=== PATIENT | male | born 1975 | race Caucasian/White ===

== ENCOUNTER 2016-03-25 10:11 | Emergency (ER) | payer OTHER ==
[~2016-03-25] VITALS: Ht 188 cm; Wt 108.9 kg
[~2016-03-25 10:11] MED LIST: ?ANTIBIOTIC; AMOX250S6 PO; ESCI10TA PO; HYDR-2890 PO; HYDR15SO6 PO; Lidocaine Hcl PO; NF-ESOM40C PO; ONDA-42 SL; PANT40TA3 PO; TRAM-21 PO
--- OUTSIDE RECORDS SUMMARY | 2016-03-25 10:18 | XMS REPORT | Continuity of Care Document ---
Author Author [facility] Organization [facility] Address Unknown Phone Unavailable Care Team Providers Care Pot Feeder Name Role Phone ROLANDO SAVAGE MD PCP Insurance Providers Payer Name Policy Number Subscriber Name Relationship [facility] [id number] Mildred Baker 20 Self / Same As Patient Advance Directives Directive Response Recorded Date/Time Advance Directives No 09/07/14 1:55pm Health Care Power of Collection Manager No 09/07/14 1:55pm Organ Donor Yes 09/07/14 1:55pm Resuscitation Status Full Code 09/07/14 1:55pm Problems Medical Problems Problem Onset Date Status Right sided abdominal pain Unknown Active Medications Medication Dose Route Sig Days/Qty Instructions Order Date Discontinued Date Status Esomeprazole Magnesium 1 Cap PO DAILY 30 Qty 12/06/12 Active [?Antibiotic] ?MG BID 12/06/12 05/31/14 Discontinued Hydrocodone Bit/Acetaminophen 1 Each PO EVERY 4HRS PRN 14 Qty 12/06/12 05/31/14 Discontinued [Lidocaine Hcl] 1 Tsp PO Q2H PRN PAIN 06/04/14 09/07/14 Discontinued Amoxicillin Trihydrate 2 Tsp PO TWICE A DAY 7 Days 06/04/14 09/07/14 Discontinued Hydrocodone Bit/Acetaminophen 10-15 Ml PO EVERY 4HRS PRN PAIN 1 Qty 09/07/14 Discontinued Tramadol Hcl 50 Mg PO EVERY 6 HOURS PRN PAIN 20 Qty 09/05/14 Active Ondansetron Hcl 4 Mg SL EVERY 4HRS PRN 10 Qty 09/05/14 09/07/14 Discontinued Social History Social History Problem Response Recorded Date/Time Alcohol Use Occasionally Uses 09/05/2014 10:15am Recreational Drug Use No 09/05/2014 10:15am Recent Foreign Travel No 09/07/2014 1:54pm Sexually Transmitted Disease No 09/05/2014 10:15am HIV/AIDS No 09/05/2014 10:15am Smoking Status Current Everyday Smoker 09/07/2014 1:52pm Do you dip or chew tobacco? No 09/07/2014 1:52pm Query Response Start Date Stop Date Smoking Status Current Everyday Smoker 06/04/2011 Hospital Discharge Instructions No hospital discharge instructions. Plan of Care No plan of care. Functional Status No functional status results. Allergies, Adverse Reactions, Alerts Allergen Type Severity Reaction Status Last Updated No Known Drug Allergies Active 12/06/12 Immunizations Name Given Type Date of Pneumonia Vaccine 06/03/09 Historical Date of Influenza Vaccine 12/08/13 Historical Tetanus Booster (TDap) More than 5yrs Historical Vital Signs Acute Vital Signs Vital Response Date/Time Temperature (Fahrenheit) 97.9 degrees F (97.6 - 99.5) Temperature (Calculated Celsius) 36.71855 degrees C (36.4 - 37.5) Temperature Source Tympanic Pulse Rate (adult) 48 bpm (60 - 90) Respiratory Rate 16 bpm (12 - 24) O2 Sat by Pulse Oximetry 99 % (88 - 100) Blood Pressure 136/66 mm Hg Pain Pain Intensity 0 Height (Feet) 6 feet Height (Inches) 3.00 inches Height (Calculated Centimeters) 190.246829 cm Weight (Pounds) 240 pounds Weight (Calculated Grams) 633892.170 gm Weight (Calculated Kilograms) 108.390813 kilograms Calculated BMI 29.99 Results Laboratory Results Test Name Result Units Flags Reference Collection Date/Time Result Date/ Time Comments White Blood Count 10.1 10^3/uL 4.3-11.0 09/05/2014 10:20am 09/05/2014 10:26am Red Blood Count 6.13 10^6/uL H 4.35-5.85 09/05/2014 10:20am 09/05/2014 10 :26am Hemoglobin 15.8 G/DL 13.3-17.7 09/05/2014 10:09/05/2014 10:26am Hematocrit 48 % 40-54 09/05/2014 10:09/05/2014 10:26am Mean Corpuscular Volume 78 FL L 80-99 09/05/2014 10:09/05/2014 10: 26am Mean Corpuscular Hemoglobin 26 PG 25-34 09/05/2014 10:09/05/2014 10:26am Mean Corpuscular Hemoglobin Concent 33 G/DL 32-36 09/05/2014 10: 10:26am Red Cell Distribution Width 18.7 % H 10.0-14.5 09/05/2014 10:2014 10:26am Platelet Count 405 10^3/uL H 130-400 09/05/2014 10:09/05/2014 10: 26am Mean Platelet Volume 9.8 FL 7.4-10.4 09/05/2014 10:09/05/2014 10: 26am Neutrophils (%) (Auto) 75 % 42-75 09/05/2014 10:09/05/2014 10: 26am Lymphocytes (%) (Auto) 17 % 12-44 09/05/2014 10:09/05/2014 10: 26am Monocytes (%) (Auto) 7 % 0-12 09/05/2014 10:09/05/2014 10:26am Eosinophils (%) (Auto) 1 % 0-10 09/05/2014 10:09/05/2014 10:26am Basophils (%) (Auto) 1 % 0-10 09/05/2014 10:09/05/2014 10:26am Neutrophils # (Auto) 7.6 X 10^3 1.8-7.8 09/05/2014 10:09/05/2014 10:26am Lymphocytes # (Auto) 1.7 X 10^3 1.0-4.0 09/05/2014 10:09/05/2014 10:26am Monocytes # (Auto) 0.7 X 10^3 0.0-1.0 09/05/2014 10:09/05/2014 10: 26am Eosinophils # (Auto) 0.1 10^3/uL 0.0-0.3 09/05/2014 10:am 09/05/2014 10:26am Basophils # (Auto) 0.1 10^3/uL 0.0-0.1 09/05/2014 10:09/05/2014 10 :26am Urine Color YELLOW 09/05/2014 11:09/05/2014 11:46am Urine Clarity CLEAR 09/05/2014 11:09/05/2014 11:46am Urine pH 6.5 5-9 09/05/2014 11:09/05/2014 11:46am Urine Specific [place] 1.010 * 1.016-1.022 09/05/2014 11:2014 11:46am Urine Protein NEGATIVE NEGATIVE 09/05/2014 11:09/05/2014 11: 46am Urine Glucose (UA) NEGATIVE NEGATIVE 09/05/2014 11:09/05/2014 11 :46am Urine RBC (Auto) NEGATIVE NEGATIVE 09/05/2014 11:09/05/2014 11: 46am Urine Ketones NEGATIVE NEGATIVE 09/05/2014 11:09/05/2014 11: 46am Urine Nitrite NEGATIVE NEGATIVE 09/05/2014 11:09/05/2014 11: 46am Urine Bilirubin NEGATIVE NEGATIVE 09/05/2014 11:09/05/2014 11: 46am Urine Urobilinogen NORMAL MG/DL NORMAL 09/05/2014 11:09/05/2014 11 :46am Urine Leukocyte Esterase 2+ * NEGATIVE 09/05/2014 11:09/05/2014 11 :46am Urine RBC NONE /HPF 09/05/2014 11:09/05/2014 11:46am Urine WBC 5-10 /HPF * 09/05/2014 11:09/05/2014 11:46am Urine Bacteria NEGATIVE /HPF 09/05/2014 11:09/05/2014 11:46am Urine Squamous Epithelial Cells NONE /HPF 09/05/2014 11:2014 11:46am Urine Crystals NONE /LPF 09/05/2014 11:09/05/2014 11:46am Urine Casts NONE /LPF 09/05/2014 11:09/05/2014 11:46am Urine Mucus NEGATIVE /LPF 09/05/2014 11:09/05/2014 11:46am Urine Culture Indicated YES 09/05/2014 11:09/05/2014 11:46am Sodium Level 139 MMOL/L 135-145 09/05/2014 10:09/05/2014 10:46am Potassium Level 3.8 MMOL/L 3.6-5.0 09/05/2014 10:09/05/2014 10: 46am Chloride Level 107 MMOL/L 98-107 09/05/2014 10:09/05/2014 10:46am Carbon Dioxide Level 25 MMOL/L 21-32 09/05/2014 10:09/05/2014 10: 46am Blood Urea Nitrogen 13 MG/DL 7-18 09/05/2014 10:09/05/2014 10: 46am Creatinine 1.34 MG/DL H 0.60-1.30 09/05/2014 10:09/05/2014 10:46am BUN/Creatinine Ratio 10 09/05/2014 10:09/05/2014 10:46am Estimat Glomerular Filtration Rate 60 09/05/2014 10:2014 10:46am GFR INTERPRETIVE DATA UNITS FOR ESTIMATED GFR (eGFR): mL/min/1.73 M2 REFERENCE RANGE FOR ESTIMATED GFR (eGFR) eGFR NORMAL eGFR >60 MODERATELY DECREASED eGFR 30-59 SEVERLY DECREASED eGFR 15-29 KIDNEY FAILURE <15 (OR DIALYSIS) Glucose Level 148 MG/DL H 70-105 09/05/2014 10:09/05/2014 10:46am Calcium Level 9.6 MG/DL 8.5-10.1 09/05/2014 10:09/05/2014 10:46am Total Bilirubin 0.8 MG/DL 0.1-1.0 09/05/2014 10:09/05/2014 10: 46am Alkaline Phosphatase 83 U/L 40-136 09/05/2014 10:09/05/2014 10: 46am Aspartate Amino Transf (AST/SGOT) 20 U/L 5-34 09/05/2014 10:2014 10:46am Alanine Aminotransferase (ALT/SGPT) 21 U/L 0-55 09/05/2014 10:2015 10:46am Total Protein 7.3 G/DL 6.4-8.2 09/05/2014 10:20am 09/05/2014 10:46am Albumin 4.3 G/DL 3.2-4.5 09/05/2014 10:20am 09/05/2014 10:46am Lipase 8 U/L 8-78 09/05/2014 10:20am 09/05/2014 12:04pm Procedures Procedure Status Date Provider(s) Esophagogastroduodenoscopy (EGD) with dilation completed 09/07/14 NIDA WILKS MD Encounters Encounter Location Date/Time Registered [facility] 09/07/14 1:12pm Registered Clinic [facility] 09/07/14 7:21am Departed Emergency Room [facility] 09/05/14 9:59am
[2016-03-25 10:47] VITALS: BP 147/74
[2016-03-25] MEDS ORDERED: VARE0.5T PO (10:53)
[2016-07-01] MEDS ORDERED: PANT40TA2 PO (11:20)
== END 2016-03-25 13:01 | disposition home or self-care (01) ==
LOC: EDUNIT# 10:11 → ER 10:13
DX: S69.92XA Unspecified injury of left wrist, hand and finger(s), initial encounter (principal); W00.9XXA Unspecified fall due to ice and snow, initial encounter; Y99.8 Other external cause status; Z53.21 Procedure and treatment not carried out due to patient leaving prior to being seen by health care provider
CPT/HCPCS: 99281

== ENCOUNTER 2016-06-19 19:39 | Emergency (ER) | payer OTHER ==
[~2016-06-19] VITALS: Ht 188 cm; Wt 104.3 kg
[~2016-06-19 19:39] MED LIST changes: +VARE0.5T PO
[2016-06-19] MEDS ORDERED: POLY17PO6 PO (19:49)
--- NOTE | 2016-06-19 19:55 | ED Abdominal Pain ---
General Chief Complaint: Abdominal/GI Problems Stated Complaint: ABD PAIN,CONSTIPATION Nursing Triage Note: pt reports he was seen at [facility] 2 weeks ago et diagnosed with constipation. he has been taking miralax since then, without results. he has also been on a liquid diet. he reports pain is worsening. last normal BM 1 month ago. he has very small, painful BM's. c/o nausea Sepsis Screen: No Definite Risk Source of Information: Patient Exam Limitations: No Limitations History of Present Illness Time Seen By Provider: 19:53 Initial Comments To ER with reports of abdominal distention for about 2 weeks, last normal bowel movement one month ago but some intermittent loose stools and small stools since then, he is passing gas, he had some nausea today without fevers or vomiting, diffuse abdominal cramping today. He was seen by Dr. Lopez's nurse practitioner 2 weeks ago and put on MiraLAX after having an abdominal x-ray that showed constipation. Timing/Duration: Getting Worse, Intermittent Severity/Quality: Cramping Location: Generalized Abdomen Radiation: No Radiation Activities at Onset: None Associated Symptoms: Nausea/Vomiting, Swelling/Mass in Abdomen Allergies and Home Medications Allergies Coded Allergies: No Known Drug Allergies (Unverified , 05/07/15) Home Medications Polyethylene Glycol 3350 17 Gm Powd.pack, 17 GM PO BID, (Reported) Review of Systems Constitutional: see HPI EENTM: No Symptoms Reported Respiratory: No Symptoms Reported Cardiovascular: No Symptoms Reported Gastrointestinal: See HPI, Abdominal Pain, Constipated, Denies Diarrhea, Nausea Genitourinary: No Symptoms Reported Musculoskeletal: no symptoms reported Skin: no symptoms reported Psychiatric/Neurological: No Symptoms Reported Endocrine: No Symptoms Reported Past Hbsjyim-Jovwao-Xauvqe Hx Patient Social History Alcohol Use: Occasionally Uses Recreational Drug Use: No Smoking Status: Never a Smoker Recent Foreign Travel: No Contact w/Someone Who Travel: No Recent Infectious Disease Expo: No Recent Hopitalizations: No Immunizations Up To Date Tetanus Booster (TDap): More than 5yrs Date of Pneumonia Vaccine: Jun 03, 2009 Date of Influenza Vaccine: Dec 08, 2013 Seasonal Allergies Seasonal Allergies: No Surgeries HX Surgeries: Yes (R-SHOULDER RECONSTRUCTION APR 2015) Surgeries: Tonsillectomy Respiratory Hx Respiratory Disorders: No Respiratory Disorders: Sleep Apnea Cardiovascular Hx Cardiac Disorders: No Neurological Hx Neurological Disorders: No Reproductive System Hx Reproductive Disorders: No Sexually Transmitted Disease: No HIV/AIDS: No Genitourinary Hx Genitourinary Disorders: No Gastrointestinal Hx Gastrointestinal Disorders: Yes Gastrointestinal Disorders: Gastroesophageal Reflux, Ulcer Musculoskeletal Hx Musculoskeletal Disorders: No Endocrine Hx Endocrine Disorders: No HEENT HX ENT Disorders: No Cancer Hx Cancer: No Psychosocial Hx Psychiatric Problems: No Integumentary HX Skin/Integumentary Disorder: No Blood Transfusions Hx Blood Disorders: No Adverse Reaction to a Blood Tr: No Family Medical History Significant Family History: Heart Disease, DVT/PE, Diabetes Physical Exam Vital Signs VS - Last 72 Hours, by Label 06/19/16 19:44 Temp 98.9 Pulse 68 Resp 16 B/P (MAP) 152/84 Capillary Refill : Less Than 3 Seconds General Appearance: WD/WN, no apparent distress HEENT: PERRL/EOMI, normal ENT inspection Neck: non-tender, full range of motion Respiratory: no respiratory distress, no accessory muscle use Gastrointestinal: normal bowel sounds, soft, distended (hypoactive bowel sounds ) Extremities: normal range of motion, non-tender Neurologic/Psychiatric: alert, normal mood/affect, oriented x 3 Skin: normal color, warm/dry Progress/Results/Core Measures Results/Orders Lab Results Laboratory Tests Test 06/19/16 19:57 06/19/16 20:28 Range/Units White Blood Count 7.6 4.3-11.0 10^3/uL Red Blood Count 5.21 4.35-5.85 10^6/uL Hemoglobin 15.6 13.3-17.7 G/DL Hematocrit 45 40-54 % Mean Corpuscular Volume 87 80-99 FL Mean Corpuscular Hemoglobin 30 25-34 PG Mean Corpuscular Hemoglobin Concent 34 32-36 G/DL Red Cell Distribution Width 13.5 10.0-14.5 % Platelet Count 307 130-400 10^3/uL Mean Platelet Volume 9.5 7.4-10.4 FL Neutrophils (%) (Auto) 53 42-75 % Lymphocytes (%) (Auto) 31 12-44 % Monocytes (%) (Auto) 13 H 0-12 % Eosinophils (%) (Auto) 2 0-10 % Basophils (%) (Auto) 1 0-10 % Neutrophils # (Auto) 4.0 1.8-7.8 X 10^3 Lymphocytes # (Auto) 2.3 1.0-4.0 X 10^3 Monocytes # (Auto) 1.0 0.0-1.0 X 10^3 Eosinophils # (Auto) 0.2 0.0-0.3 10^3/uL Basophils # (Auto) 0.1 0.0-0.1 10^3/uL Sodium Level 140 135-145 MMOL/L Potassium Level 3.5 L 3.6-5.0 MMOL/L Chloride Level 106 98-107 MMOL/L Carbon Dioxide Level 21 21-32 MMOL/L Anion Gap 13 5-14 MMOL/L Blood Urea Nitrogen 11 7-18 MG/DL Creatinine 1.15 0.60-1.30 MG/DL Estimat Glomerular Filtration Rate > 60 BUN/Creatinine Ratio 10 Glucose Level 114 H 70-105 MG/DL Calcium Level 9.3 8.5-10.1 MG/DL Total Bilirubin 0.6 0.1-1.0 MG/DL Aspartate Amino Transf (AST/SGOT) 52 H 5-34 U/L Alanine Aminotransferase (ALT/SGPT) 91 H 0-55 U/L Alkaline Phosphatase 71 40-136 U/L Total Protein 6.9 6.4-8.2 G/DL Albumin 4.4 3.2-4.5 G/DL Lipase 10 8-78 U/L Urine Color YELLOW Urine Clarity CLEAR Urine pH 6 5-9 Urine Specific [place] 1.015 L 1.016-1.022 Urine Protein NEGATIVE NEGATIVE Urine Glucose (UA) NEGATIVE NEGATIVE Urine Ketones NEGATIVE NEGATIVE Urine Nitrite NEGATIVE NEGATIVE Urine Bilirubin NEGATIVE NEGATIVE Urine Urobilinogen NORMAL NORMAL MG/DL Urine Leukocyte Esterase NEGATIVE NEGATIVE Urine RBC (Auto) NEGATIVE NEGATIVE Urine RBC NONE /HPF Urine WBC NONE /HPF Urine Squamous Epithelial Cells RARE /HPF Urine Crystals NONE /LPF Urine Bacteria NONE /HPF Urine Casts NONE /LPF Urine Mucus NEGATIVE /LPF Urine Culture Indicated NO My Orders Orders - VALENTIN ZAVALA APRN Cbc With Automated Diff (06/19/16 19:52) Comprehensive Metabolic Panel (06/19/16 19:52) Ua Culture If Indicated (06/19/16 19:52) Lipase (06/19/16 19:52) Saline Lock/Iv-Start (06/19/16 19:52) Ct Abdomen/Pelvis W (06/19/16 19:52) Ondansetron Injection (Zofran Injectio (06/19/16 20:00) Iohexol Injection (Omnipaque 350 Mg/Ml 1 (06/19/16 20:30) Ns (Ivpb) (Sodium Chloride 0.9% Ivpb Bag (06/19/16 20:30) Dicyclomine Capsule (Bentyl Capsule) (06/19/16 20:45) Medications Given in ED Current Medications Medications Dose Ordered Sig/Jessy Route Start Time Stop Time Status Last Admin Dose Admin Iohexol 150 ml ONCE ONCE IV 06/19/16 20:30 06/19/16 20:31 UNV 06/19/16 20:31 140 ML Ondansetron HCl 4 mg ONCE ONCE IVP 06/19/16 20:00 06/19/16 20:01 DC 06/19/16 20:10 4 MG Sodium Chloride 100 ml ONCE ONCE IV 06/19/16 20:30 06/19/16 20:31 UNV 06/19/16 20:31 80 ML Vital Signs/I&O Vital Sign - Last 12Hours 06/19/16 19:44 Temp 98.9 Pulse 68 Resp 16 B/P (MAP) 152/84 Blood Pressure Mean: 106 Departure Communication Progress Notes 2108-CT scan shows no acute abnormalities. Patient is scheduled to see Dr. Wilks on the of this month for an upper GI endoscopy and colonoscopy Impression Impression: Primary Impression: Elevated liver enzymes Additional Impressions: Abdominal cramping Irritable bowel syndrome Disposition: 01 HOME, SELF-CARE Condition: Stable Departure-Patient Inst. Decision time for Depature: 21:03 Referrals: NO,LOCAL PHYSICIAN (PCP/Family) Primary Care Physician Patient Instructions: Irritable Bowel Syndrome (DC) Add. Discharge Instructions: 1. Return to ER for any fevers, bloody diarrhea, worsening symptoms of any sort 2. Follow-up with Dr. Wilks as scheduled 3. All discharge instructions reviewed with patient and/or family. Voiced understanding. Scripts Dicyclomine HCl (Bentyl) 10 Mg Capsule 20 MG PO QID, #30 CAP Prov: VALENTIN ZAVALA APRN 06/19/16 Copy Copies To 1: NIDA WILKS MD Copies To 2: ROLANDO LOPEZ MD, PETER J APRN Jun 19, 2016 19:55
[2016-06-19] MEDS ORDERED: ONDANSETRON 4 MG/2 ML (SDV) Z0FRAN IVP ONE (20:00)
[2016-06-19 20:05] LABS: MEAN CORPUSCULAR HEMOGLOBIN 30 PG (25-34); MEAN CORPUSCULAR VOLUME 87 FL (80-99); RED BLOOD COUNT 5.21 10^6/uL (4.35-5.85); WHITE BLOOD COUNT 7.6 10^3/uL (4.3-11.0)
[2016-06-19 20:06] LABS: BASOPHILS # (AUTO) 0.1 10^3/uL (0.0-0.1); BASOPHILS % (AUTO) 1 % (0-10); EOSINOPHILS # (AUTO) 0.2 10^3/uL (0.0-0.3); EOSINOPHILS % (AUTO) 2 % (0-10); LYMPHOCYTES # (AUTO) 2.3 X 10^3 (1.0-4.0); LYMPHOCYTES % (AUTO) 31 % (12-44); MEAN CORPUSCULAR HGB CONC 34 G/DL (32-36); MEAN PLATELET VOLUME 9.5 FL (7.4-10.4); MONOCYTES % (AUTO) 13 % (0-12); NEUTROPHILS % (AUTO) 53 % (42-75); PLATELET COUNT 307 10^3/uL (130-400); RED CELL DISTRIBUTION WIDTH 13.5 % (10.0-14.5)
[2016-06-19 20:23] LABS: ALANINE AMINOTRANSFERASE 91 U/L (0-55); ALBUMIN 4.4 G/DL (3.2-4.5); ANION GAP 13 MMOL/L (5-14); ASPARTATE AMINO TRANSFERASE 52 U/L (5-34); BILIRUBIN,TOTAL 0.6 MG/DL (0.1-1.0); BLOOD UREA NITROGEN 11 MG/DL (7-18); BUN/CREATININE RATIO 10; CALCIUM 9.3 MG/DL (8.5-10.1); CARBON DIOXIDE 21 MMOL/L (21-32); CHLORIDE 106 MMOL/L (98-107); CREATININE SERUM 1.15 MG/DL (0.60-1.30); GFR ESTIMATED > 60; GLUCOSE 114 MG/DL (70-105); LIPASE 10 U/L (8-78); POTASSIUM 3.5 MMOL/L (3.6-5.0); SODIUM 140 MMOL/L (135-145); TOTAL PROTEIN 6.9 G/DL (6.4-8.2)
[2016-06-19] MEDS ORDERED: IOHEXOL 350 MG/ML 150 ML (OMNIPAQUE 350) VIAL IV ONE (20:30)
[2016-06-19] MEDS ORDERED: NS 100 ML (IVPB) BAG IV ONE (20:30)
[2016-06-19 20:37] LABS: BILIRUBIN,URINE NEGATIVE (NEGATIVE); KETONES,URINE NEGATIVE (NEGATIVE); LEUKOCYTE ESTERASE ,URINE NEGATIVE (NEGATIVE); NITRITE,URINE NEGATIVE (NEGATIVE); PH,URINE 6 (5-9); PROTEIN,URINE NEGATIVE (NEGATIVE); UROBILINOGEN,URINE NORMAL (NORMAL)
[2016-06-19 20:44] LABS: SQUAMOUS EPITHELIAL CELL,UR RARE /HPF
[2016-06-19] MEDS ORDERED: DICYCLOMINE 10 MG (BENTYL) CAP PO SCH (20:45)
--- NOTE | 2016-06-19 20:50 | Diagnostic Imaging Report ---
INDICATION: Abdominal pain and nausea and vomiting. CT of the abdomen and pelvis obtained with IV contrast bolus. Comparison made to 05/07/15. The visualized portions of the lung bases show dependent atelectatic changes. There is no pleural fluid or consolidation. There is no evidence of free intraperitoneal air. The liver and gallbladder are normal. The spleen, adrenals, and pancreas are unremarkable. Kidneys bilaterally are normal. There is no retroperitoneal mass or adenopathy. There is no ascites or abnormal fluid collection. Visualized bowel loops appear unremarkable. The appendix is normal. IMPRESSION: No acute abnormality visualized in the abdomen or pelvis. There are dependent atelectatic changes in the lung bases. Dictated by: Dictated on workstation # [id number]
[2016-06-19] MEDS ORDERED: DICY10CA59 PO (21:05)
[2016-06-19 21:15] VITALS: BP 146/76
[2016-07-01] MEDS ORDERED: PANT40TA2 PO (11:20)
== END 2016-06-19 21:15 | disposition home or self-care (01) ==
LOC: EDUNIT# 19:39 → ER 19:40
DX: R10.30 Lower abdominal pain, unspecified (principal); K58.9 Irritable bowel syndrome, unspecified; R74.8 Abnormal levels of other serum enzymes
CPT/HCPCS: 36415; 74177; 80053; 81000; 83690; 85025; 96374

== ENCOUNTER 2016-06-26 05:37 | Outpatient (CLI) | payer OTHER ==
[~2016-06-26] VITALS: Ht 188 cm; Wt 104.3 kg
[~2016-06-26 05:37] MED LIST changes: +DICY10CA59 PO; +POLY17PO6 PO
[2016-06-26] MEDS ORDERED: ESOM20CA PO (11:25)
[2016-07-01] MEDS ORDERED: PANT40TA2 PO (11:20)
== END 2016-06-26 11:29 ==
LOC: PREOP 05:37
PROVIDERS: ATTEND Surgery
DX: Z01.818 Encounter for other preprocedural examination (principal); K21.9 Gastro-esophageal reflux disease without esophagitis; Z87.11 Personal history of peptic ulcer disease; R19.4 Change in bowel habit

== ENCOUNTER 2016-07-01 08:17 | Day surgery (SDC) | payer OTHER ==
[~2016-07-01] VITALS: Ht 188 cm; Wt 104.3 kg
[~2016-07-01 08:17] MED LIST changes: +ESOM20CA PO
[2016-07-01 08:30] VITALS: BP 133/87
[2016-07-01] MEDS ORDERED: HURRICAINE EXT TUBE (BENZOCAINE) XX PRN (08:30)
[2016-07-01] MEDS ORDERED: NALOXONE 0.4 MG/ML 1 ML (NARCAN) VIAL IVP PRN (08:30)
[2016-07-01] MEDS ORDERED: FLUMAZENIL (ROMAZICON) 0.1 MG/ML 5 ML VIAL INJ PRN (08:30)
[2016-07-01] MEDS ORDERED: NS IV 500 ML 500 ML IV PRN (08:30)
[2016-07-01] MEDS ORDERED: NS IV 500 ML 500 ML ONE (08:38)
--- NOTE | 2016-07-01 09:14 | Conscious Sedation/ASA ---
Conscious Sedation Pre-Proced ASA Class: 2 Airway Mallampati Classification: ([facility] appropriate class) I. II. III, IV Lungs Heart ASA score ASA 1: a normal healthy patient ASA 2: a patient with a mild systemic disease (mid diabetes, controlled hypertension, obesity ASA 3: a patient with a severe systemic disease that limits activity (angina , COPD, prior Myocardial infarction) ASA 4: a patient with an incapacitating disease that is a constant threat to life (CHF, renal failure) ASA 5: a moribund patient not expected to survive 24 hrs. (ruptured aneurysm) ASA 6: a declared brain patient whose organs are being harvested. For emergent operations, add the letter E after the classification Grade 2 Sedation Plan: Discussed options with patient/fam Note The patient is an appropriate candidate to undergo the planned procedure, sedation, and anesthesia. The patient immediately re-assessed prior to indication. NIDA WILKS MD Jul 01, 2016 9:14 am
[2016-07-01] MEDS ORDERED: fentaNYL INJECTION 100 MCG/2 ML AMP ONE ×2 (09:28)
[2016-07-01] MEDS ORDERED: MIDAZOLAM 2 MG/2 ML (VERSED) VIAL ONE ×4 (09:28)
[2016-07-01] MEDS ORDERED: HURRICAINE EXT TUBE (BENZOCAINE) ONE (09:29)
[2016-07-01] MEDS: fentaNYL INJECTION 100 MCG/2 ML AMP IVP PRN ×2 (09:41→09:43)
[2016-07-01] MEDS: MIDAZOLAM 2 MG/2 ML (VERSED) VIAL IVP PRN ×6 (09:42→09:59)
--- NOTE | 2016-07-01 10:07 | Endoscopy Procedure Report ---
Endoscopy Report Date: Jul 01, 2016 Preoperative Diagnosis: GERD. Change in bowel habits Study Performed: Upper Endoscopy, Colonoscopy Procedure Instrument: Endoscope Endo Procedure/Findings Findings 1.: Hiatal Hernia, Other Findings 2.: Normal Recommendations: Recommendations: 1.: Start Medication(s) Copy Copies To 1: ROLANDO SAVAGE MD, XAVIER M MD Jul 01, 2016 10:07 am
--- NOTE | 2016-07-01 10:08 | Discharge Inst-Simple/Standard ---
Discharge Inst-Standard Discharge Medications New, Converted or Re-Newed RX: Other Patient Instructions/Follow Up Plan of Care/Instructions/FU: to increase Nexium to twice a day. Follow-up with me in a month. To avoid nonsteroidals Activity as Tolerated: Yes Discharge Diet: No Restrictions NIDA WILKS MD Jul 01, 2016 10:08 am
[2016-07-01 10:35] VITALS: BP 137/100
--- NOTE | 2016-07-01 10:44 | OPERATIVE REPORT ---
DATE OF SERVICE: 07/01/2016 PROCEDURES: 1. Upper GI endoscopy with biopsy. 2. Colonoscopy. SURGEON: Mynor. INDICATIONS FOR PROCEDURE: This gentleman came for an upper endoscopy to evaluate ongoing symptoms of epigastric pain with reflux and colonoscopy to investigate a change in his bowel habits. Informed consent was obtained after reviewing the procedures in detail. DESCRIPTION OF PROCEDURE: UPPER GI ENDOSCOPY/BIOPSY: He was placed in left lateral decubitus position and his vital signs were monitored. Conscious sedation was achieved using Versed and fentanyl. The flexible gastroscope was then introduced down the esophagus, past the stomach into the proximal duodenum. FINDINGS: 1. A long hiatal hernia. 2. Grade III esophagitis with linear ulcers extending up to 36 cm from the incisors. Photo-documentation and biopsy for Dailey's changes were obtained. 3. Stomach: mild distal gastritis. Biopsy for H. pylori was obtained. 4. Duodenum: normal. He tolerated the procedure well and was turned around in preparation for colonoscopy. IMPRESSION: Symptoms of reflux disease. Grade III esophagitis. Biopsy pending. COLONOSCOPY: Digital rectal examination was unremarkable. The colonoscope was then introduced into the rectum and advanced all the way up to the cecum. The scope was then withdrawn slowly and the mucosa examined in a systematic fashion. There was no abnormality. He tolerated the procedures well and was taken to the recovery room in stable condition. IMPRESSION: Change in bowel habits. Normal colonoscopy. Job ID: [id number] DocumentID: [id number] Dictated Date: 07/01/2016 10:04:15 Owner/Photographer Date: 07/01/2016 10:43:15 Dictated By: NIDA WILKS MD MTDD
[2016-07-01 11:10] VITALS: BP 132/87
[2016-07-01] MEDS ORDERED: PANT40TA2 PO (11:20)
[2016-07-01 11:25] VITALS: BP 132/87
== END 2016-07-01 11:30 | disposition home or self-care (01) ==
LOC: ENDO 08:17
PROVIDERS: ATTEND Surgery
DX: K20.9 Esophagitis, unspecified (principal); K44.9 Diaphragmatic hernia without obstruction or gangrene; K29.70 Gastritis, unspecified, without bleeding; R19.5 Other fecal abnormalities
CPT/HCPCS: 88305

== ENCOUNTER → 2018-12-01 | Outpatient (CLI) | payer OTHER ==
[~2018-12-01] MED LIST changes: +PANT40TA2 PO
--- NOTE | 2018-12-01 11:04 | Diagnostic Imaging Report ---
Indication: Pain Comparison: 05/07/2015 Technique: 3 radiographs of the right ankle dated 12/01/2018. Findings: A new vertically oriented lucency is identified associated with the inferior aspect of the mid talus seen on the lateral radiograph only. No additional fracture. The talar dome is unremarkable. Ankle mortise is symmetric. No suspicious radiopaque foreign body. Impression: New vertically oriented lucency extending through the inferior aspect of the mid talus is suspect for a nondisplaced fracture. A CT of the hind foot would help to further evaluate. Report was called to Dale/aoc airspace control officer of Dr. Reynoso by yared at 11:03 am. Dictated by: Dictated on workstation # [id number]
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
== END ==
LOC: RAD 09:28
PROVIDERS: ATTEND Family Medicine
DX: M25.471 Effusion, right ankle (principal); M79.671 Pain in right foot
CPT/HCPCS: 73610; 73630

== ENCOUNTER → 2018-12-02 | Outpatient (CLI) | payer OTHER ==
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
== END ==
LOC: RAD 09:12
PROVIDERS: ATTEND Family Medicine
DX: M25.561 Pain in right knee (principal); M25.562 Pain in left knee; S92.101A Unspecified fracture of right talus, initial encounter for closed fracture; M25.511 Pain in right shoulder; M25.512 Pain in left shoulder; M79.605 Pain in left leg; V89.2XXA Person injured in unspecified motor-vehicle accident, traffic, initial encounter
CPT/HCPCS: 73590; 73700

== ENCOUNTER 2022-12-09 13:54 | Emergency (ER) | payer OTHER ==
[~2022-12-09] VITALS: Ht 187 cm; Wt 100.0 kg
[~2022-12-09 13:54] MED LIST changes: -PANT40TA3 PO; +PANT40TA52 PO
[2022-12-09 14:09] VITALS: BP 148/80
--- NOTE | 2022-12-09 14:26 | ED General ---
General Chief Complaint: General Problems/Pain Stated Complaint: HICCUPS x 4 DAYS | COVID + ON 12/04/2022 Nursing Triage Note: hiccup x days. no other symptoms. pt reports he is able to keep food and water down. Source of Information: Patient Exam Limitations: No Limitations History of Present Illness Date Seen by Provider: Dec 09, 2022 Time Seen by Provider: 14:26 Initial Comments Patient is a 47-year-old male who presents ED with 4 days of hiccups. Patient states hiccups occur randomly throughout the day. Patient states he was diagnosed with COVID on 12/04/2022. Patient has been attempting to drink water to help without much improvement. Does have a history of GERD takes Nexium. Does report some mild cough and shortness of breath. Patient states he had flulike symptoms a week prior when he was tested. Patient does wear CPAP at night. Patient states symptoms seems to be worse with eating. Denies of any nausea vomiting or diarrhea, chest pain, abdominal pain, headache, dizziness, sore throat. Denies history of coronary artery disease, COPD or asthma. Denies taking any other medication with the symptoms Allergies and Home Medications Allergies Coded Allergies: No Known Drug Allergies (Unverified , 05/07/15) Patient Home Medication List Home Medication List Reviewed: Yes Chlorpromazine HCl (Chlorpromazine HCl) 25 Mg Tablet, 25 MG PO TID Prescribed by: BRENDA FONG on 12/09/22 1635 Esomeprazole Magnesium (Nexium) 20 Mg Capsule.dr, 40 MG PO DAILY, (Reported) Entered as Reported by: MARISA PEREZ on 06/26/16 1125 Pantoprazole Sodium (Protonix) 40 Mg Tablet.dr, 40 MG PO BID Prescribed by: NIDA WILKS on 07/01/16 1120 Review of Systems Review of Systems Constitutional: No chills, No diaphoresis EENTM: No blurred vision, No double vision Respiratory: cough, short of breath Cardiovascular: No chest pain Gastrointestinal: No abdominal pain, No diarrhea, No nausea, No vomiting Genitourinary: No decreased output, No discharge Musculoskeletal: No back pain, No joint pain Skin: No change in color, No change in hair/nails All Other Systems Reviewed Negative Unless Noted: Yes Past Zltihzc-Jxhwtf-Vaemus Hx Patient Social History Tobacco Use?: No Use of E-Cig and/or Vaping dev: No Substance use?: No Alcohol Use?: No Pt feels they are or have been: No Immunizations Up To Date Tetanus Booster (TDap): More than 5yrs Seasonal Allergies Seasonal Allergies: Yes Past Medical History Adenoidectomy, Tonsillectomy Sleep Apnea Reproductive Disorders: No Sexually Transmitted Disease: No HIV/AIDS: No Gastroesophageal Reflux, Ulcer Adverse Reaction/Blood Tranf: No Family Medical History Heart Disease, DVT/PE, Diabetes Physical Exam Vital Signs Vital Signs - First Documented 12/09/22 14:09 Temp 36.9 Pulse 76 Resp 20 B/P (MAP) 148/80 (102) Pulse Ox 98 O2 Delivery Room Air Capillary Refill : Less Than 3 Seconds Height, Weight, BMI Height: 6'2.00" Weight: 230lbs. 0.0oz. 104.017541ts; 28.00 BMI Method:Stated General Appearance: No Apparent Distress, WD/WN Eyes: Bilateral Eye Normal Inspection, Bilateral Eye PERRL, Bilateral Eye EOMI HEENT: PERRL/EOMI, TMs Normal, Normal ENT Inspection, Pharynx Normal Neck: Full Range of Motion, Normal Inspection, Non Tender, Supple Respiratory: Chest Non Tender, Lungs Clear, Normal Breath Sounds, No Accessory Muscle Use, No Respiratory Distress Cardiovascular: Regular Rate, Rhythm, No Edema, No Gallop, No JVD, No Murmur Gastrointestinal: Normal Bowel Sounds, No Organomegaly, No Pulsatile Mass Neurologic/Psychiatric: Alert, Oriented x3, No Motor/Sensory Deficits, Normal Mood/Affect, installer molding and trim II-XII Norm as Tested Skin: Normal Color Progress/Results/Core Measures Suspected Sepsis SIRS Temperature: Pulse: 76 Respiratory Rate: 20 Laboratory Tests 12/09/22 14:52: White Blood Count 19.4H Blood Pressure 148 /80 Mean: 102 Laboratory Tests 12/09/22 14:52: Creatinine 1.27, Platelet Count 450H, Total Bilirubin 0.4 Results/Orders Lab Results Laboratory Tests Test 12/09/22 14:52 Range/Units White Blood Count 19.4 H 4.3-11.0 10^3/uL Red Blood Count 5.93 H 4.30-5.52 10^6/uL Hemoglobin 16.0 13.3-17.7 g/dL Hematocrit 48 40-54 % Mean Corpuscular Volume 82 80-99 fL Mean Corpuscular Hemoglobin 27 25-34 pg Mean Corpuscular Hemoglobin Concent 33 32-36 g/dL Red Cell Distribution Width 14.7 H 10.0-14.5 % Platelet Count 450 H 130-400 10^3/uL Mean Platelet Volume 9.2 9.0-12.2 fL Immature Granulocyte % (Auto) 4 % Neutrophils (%) (Auto) 79 H 42-75 % Lymphocytes (%) (Auto) 11 L 12-44 % Monocytes (%) (Auto) 6 0-12 % Eosinophils (%) (Auto) 0 0-10 % Basophils (%) (Auto) 0 0-10 % Neutrophils # (Auto) 15.3 H 1.8-7.8 10^3/uL Lymphocytes # (Auto) 2.1 1.0-4.0 10^3/uL Monocytes # (Auto) 1.2 H 0.0-1.0 10^3/uL Eosinophils # (Auto) 0.0 0.0-0.3 10^3/uL Basophils # (Auto) 0.1 0.0-0.1 10^3/uL Immature Granulocyte # (Auto) 0.7 H 0.0-0.1 10^3/uL Neutrophils % (Manual) 77 % Lymphocytes % (Manual) 13 % Monocytes % (Manual) 9 % Nucleated Red Blood Cells 1 Reactive Lymphocytes 1 % Platelet Estimate SLIGHTLY ELEVATED Poikilocytosis SLIGHT Sodium Level 136 135-145 MMOL/L Potassium Level 4.5 3.6-5.0 MMOL/L Chloride Level 105 98-107 MMOL/L Carbon Dioxide Level 19 L 21-32 MMOL/L Anion Gap 12 5-14 MMOL/L Blood Urea Nitrogen 25 H 7-18 MG/DL Creatinine 1.27 0.60-1.30 MG/DL Estimat Glomerular Filtration Rate 71 BUN/Creatinine Ratio 20 Glucose Level 171 H 70-105 MG/DL Calcium Level 8.7 8.5-10.1 MG/DL Corrected Calcium 8.8 8.5-10.1 MG/DL Total Bilirubin 0.4 0.1-1.0 MG/DL Aspartate Amino Transf (AST/SGOT) 24 5-34 U/L Alanine Aminotransferase (ALT/SGPT) 32 0-55 U/L Alkaline Phosphatase 47 40-136 U/L Troponin I < 0.028 <0.028 NG/ML Total Protein 7.0 6.4-8.2 GM/DL Albumin 3.9 3.2-4.5 GM/DL My Orders Orders - EDUARD COATS PA Chest 1 View, Ap/Pa Only (12/09/22 14:22) Lidocaine 2% Viscous 15 Ml (Xylocaine Vi (12/09/22 14:30) Antacid Suspension (Antacid Suspension (12/09/22 14:30) Metoclopramide Tablet (Metoclopramide (12/09/22 14:30) Cbc And Automated Diff (12/09/22 14:27) Comprehensive Metabolic Panel (12/09/22 14:27) Troponin I [place] (12/09/22 14:27) Ekg Tracing (12/09/22 14:27) Manual Differential (12/09/22 14:52) Chlorpromazine Tablet (Chlorpromazine Ta (12/09/22 16:15) Medications Given in ED Current Medications Medications Dose Ordered Sig/Jessy Route Start Time Stop Time Status Last Admin Dose Admin Al Hydrox/Mg Hydrox/Simethicone 30 ml ONCE ONCE PO 12/09/22 14:30 12/09/22 14:31 DC 12/09/22 15:41 30 ML Chlorpromazine HCl 25 mg ONCE ONCE PO 12/09/22 16:15 12/09/22 16:16 DC 12/09/22 16:21 25 MG Lidocaine HCl 15 ml ONCE ONCE PO 12/09/22 14:30 12/09/22 14:31 DC 12/09/22 15:41 15 ML Metoclopramide HCl 10 mg ONCE ONCE PO 12/09/22 14:30 12/09/22 14:31 DC 12/09/22 15:54 10 MG Vital Signs/I&O 12/09/22 14:09 Temp 36.9 Pulse 76 Resp 20 B/P (MAP) 148/80 (102) Pulse Ox 98 O2 Delivery Room Air Capillary Refill : Less Than 3 Seconds Blood Pressure Mean: 102 ECG Comment Sinus rhythm, 62 bpm, QRS duration 93 MS, QTc 375 MS Departure Communication (PCP) Patient is a 47-year-old male who presents to the ED for persistent hiccups for the past 4 days. Patient was diagnosed with COVID on December 04. Not currently being treated with antiviral. Currently on prednisone last dose today. Some mild left-sided rib pain after a coughing fit a few days ago. Reports some mild shortness of breath and cough but seems to be improving. No specific chest pain. No history of COPD, asthma or known cardiac history. Due to the persistent hiccups chest x-ray, EKG, troponin CBC and CMP was ordered. EKG showed normal sinus rhythm without evidence of ST elevation or depression. Patient white blood count 19.4. Normal hemoglobin. Elevated white blood count could be related to the prednisone versus infection. Obtained a chest x-ray which did not note any evidence of pneumonia. Chemistry grossly unremarkable besides a blood sugar 171. Normal troponin. Initially was given a GI cocktail. History of GERD and takes Nexium. Did give a GI cocktail with Reglan. No significant improvement. Patient was given a dose of chlorpromazine 25 mg. EKG did not show any evidence of prolonged QT. After reviewing the literature there has been cases of persistent hiccups secondary to COVID. Discussed these results with patient. The tried physical maneuvers such as sipping ice water and drinking water quickly with no significant improvement. Patient has not hyponatremic or hypocalcemic. No foreign body in the auditory ear canal. Tolerating secretions. Will discharge with chlorpromazine at this time. Suggest follow-up your PCP in 2 to 3 days for reevaluation of white blood count and symptoms. Does not appear toxic. Vital signs stable. I suspect that this will improve with medication. If if any worsening symptoms such as severe chest pain short of breath return back to ED. Persistent hiccups Impression Primary Impression: Intractable hiccups Disposition: HOME, SELF-CARE Condition: Stable Departure-Patient Inst. Decision time for Depature: 16:11 Referrals: GILES RODNEY MD (PCP/Family) Primary Care Physician Patient Instructions: Hiccups Add. Discharge Instructions: Recommend taking chlorpromazine 3 times a day for hiccups. May consider taking Protonix or your Nexium. Should notice improvement after the next 2 or 3 days. Max of 10 days. Follow-up your PCP for further evaluation. All discharge instructions reviewed with patient and/or family. Voiced understanding. Scripts Chlorpromazine HCl (Chlorpromazine HCl) 25 Mg Tablet 25 MG PO TID for 6 Days, #20 TAB Prov: EDUARD COATS 12/09/22 EDUARD COATS Dec 09, 2022 14:26
[2022-12-09] MEDS ORDERED: ANTACID SUSPENSION 30 ML UDC PO ONE (14:30)
[2022-12-09] MEDS ORDERED: METOCLOPRAMIDE 10 MG TABLET PO ONE (14:30)
[2022-12-09] MEDS ORDERED: LIDOCAINE 2% VISCOUS 15 ML UDC PO ONE (14:30)
[2022-12-09 14:59] LABS: BASOPHILS # (AUTO) 0.1 10^3/uL (0.0-0.1); BASOPHILS % (AUTO) 0 % (0-10); EOSINOPHILS % (AUTO) 0 % (0-10); HEMATOCRIT 48 % (40-54); LYMPHOCYTES # (AUTO) 2.1 10^3/uL (1.0-4.0); LYMPHOCYTES % (AUTO) 11 % (12-44); MEAN CORPUSCULAR HEMOGLOBIN 27 pg (25-34); MEAN CORPUSCULAR HGB CONC 33 g/dL (32-36); MEAN CORPUSCULAR VOLUME 82 fL (80-99); MEAN PLATELET VOLUME 9.2 fL (9.0-12.2); MONOCYTES # (AUTO) 1.2 10^3/uL (0.0-1.0); MONOCYTES % (AUTO) 6 % (0-12); NEUTROPHILS # (AUTO) 15.3 10^3/uL (1.8-7.8); NEUTROPHILS % (AUTO) 79 % (42-75); PLATELET COUNT 450 10^3/uL (130-400); WHITE BLOOD COUNT 19.4 10^3/uL (4.3-11.0)
--- NOTE | 2022-12-09 14:59 | Diagnostic Imaging Report ---
INDICATION: Cough. COMPARISON: 05/07/2015. FINDINGS: The lungs are clear. There is no failure, effusion, or pneumothorax. IMPRESSION: Unremarkable frontal chest. Dictated by: Dictated on workstation # [id number]
[2022-12-09 15:13] LABS: ALBUMIN 3.9 GM/DL (3.2-4.5); CHLORIDE 105 MMOL/L (98-107); POTASSIUM 4.5 MMOL/L (3.6-5.0); SODIUM 136 MMOL/L (135-145)
[2022-12-09 15:15] LABS: CALCIUM 8.7 MG/DL (8.5-10.1)
[2022-12-09 15:16] LABS: GLUCOSE 171 MG/DL (70-105)
[2022-12-09 15:17] LABS: CARBON DIOXIDE 19 MMOL/L (21-32)
[2022-12-09 15:18] LABS: BILIRUBIN,TOTAL 0.4 MG/DL (0.1-1.0)
[2022-12-09 15:19] LABS: ALKALINE PHOSPHATASE 47 U/L (40-136); CREATININE SERUM 1.27 MG/DL (0.60-1.30); GFR ESTIMATED 71
[2022-12-09 15:20] LABS: BUN/CREATININE RATIO 20
[2022-12-09 15:22] LABS: ALANINE AMINOTRANSFERASE 32 U/L (0-55)
[2022-12-09 16:09] LABS: LYMPHOCYTES % (MANUAL) 13 %; MONOCYTES % (MANUAL) 9 %; NEUTROPHILS % (MANUAL) 77 %; NUCLEATED RED BLOOD CELLS 1; PLATELET ESTIMATE SLIGHTLY ELEVATED; POIKILOCYTOSIS SLIGHT; REACTIVE LYMPHOCYTES 1 %
[2022-12-09] MEDS ORDERED: CHLO25TA PO ×2 (16:13→16:35)
== END 2022-12-09 17:14 | disposition home or self-care (01) ==
LOC: EDUNIT# 13:54 → ER 13:56
DX: R06.6 Hiccough (principal); R05.9 Cough, unspecified; R06.02 Shortness of breath; R07.81 Pleurodynia; K21.9 Gastro-esophageal reflux disease without esophagitis; Z79.899 Other long term (current) drug therapy; Z86.16 Personal history of COVID-19
CPT/HCPCS: 36415; 71045; 80053; 84484; 85007; 85027; 93005

== ENCOUNTER 2022-12-21 16:57 | Emergency (ER) | payer SELFPAY ==
[~2022-12-21] VITALS: Ht 187.9 cm; Wt 124.7 kg
[~2022-12-21 16:57] MED LIST changes: +CHLO25TA PO
[2022-12-21 17:04] VITALS: BP 164/87
[2022-12-21] MEDS ORDERED: SULF1TAB38 PO (17:15)
--- NOTE | 2022-12-21 17:16 | ED General ---
General Stated Complaint: RASH ALL OVER BODY Source of Information: Patient Exam Limitations: No Limitations History of Present Illness Date Seen by Provider: Dec 21, 2022 Time Seen by Provider: 17:01 Initial Comments 47-year-old male with no pertinent past medical history coming in due to a rash. Started roughly a week ago, he states it is like pimples all over his back and chest. Spreading in his arms and legs now and slightly up his neck. He attributes this to getting COVID roughly 2 weeks ago. He states something similar happened a couple years ago when he got the COVID-vaccine. 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 He states it looks different this time and it was not pustular at the last time. He is unsure what prescription he went on last time. He is otherwise denying any fever, any involvement in his hands, feet, groin, or mucosal involvement. Eating and drinking normally, otherwise has not been on any new medicines, no new foods, no new detergents or soaps. He does shave his entire body essentially, and did shave roughly a week ago prior to this starting. Allergies and Home Medications Allergies Coded Allergies: No Known Drug Allergies (Unverified , 05/07/15) Patient Home Medication List Home Medication List Reviewed: Yes Chlorpromazine HCl (Chlorpromazine HCl) 25 Mg Tablet, 25 MG PO TID Prescribed by: BRENDA FONG on 12/09/22 1635 Esomeprazole Magnesium (Nexium) 20 Mg Capsule.dr, 40 MG PO DAILY, (Reported) Entered as Reported by: MARISA PEREZ on 06/26/16 1125 Pantoprazole Sodium (Protonix) 40 Mg Tablet.dr, 40 MG PO BID Prescribed by: NIDA WILKS on 07/01/16 1120 Review of Systems Review of Systems Constitutional: No fever EENTM: no symptoms reported Respiratory: no symptoms reported Cardiovascular: no symptoms reported Gastrointestinal: no symptoms reported Genitourinary: no symptoms reported Musculoskeletal: no symptoms reported Skin: see HPI Psychiatric/Neurological: No Symptoms Reported Hematologic/Lymphatic: No Symptoms Reported Past Ecpgbrp-Xilxlg-Trijah Hx Immunizations Up To Date Tetanus Booster (TDap): More than 5yrs Seasonal Allergies Seasonal Allergies: Yes Past Medical History Adenoidectomy, Tonsillectomy Sleep Apnea Reproductive Disorders: No Sexually Transmitted Disease: No HIV/AIDS: No Gastroesophageal Reflux, Ulcer Adverse Reaction/Blood Tranf: No Family Medical History Heart Disease, DVT/PE, Diabetes Physical Exam Vital Signs Capillary Refill : Height, Weight, BMI Height: 6'2.00" Weight: 230lbs. 0.0oz. 104.093127tp; 28.00 BMI Method:Stated General Appearance: No Apparent Distress, WD/WN Eyes: Bilateral Eye Normal Inspection Neck: Full Range of Motion, Non Tender, Supple Respiratory: Chest Non Tender, Lungs Clear, Normal Breath Sounds, No Accessory Muscle Use, No Respiratory Distress Cardiovascular: Regular Rate, Rhythm, No Edema, Normal Peripheral Pulses Gastrointestinal: Normal Bowel Sounds, Non Tender, Soft Back: Normal Inspection, No CVA Tenderness Extremity: Normal Capillary Refill, Normal Range of Motion, Non Tender, No Calf Tenderness, No Pedal Edema Neurologic/Psychiatric: Alert, No Motor/Sensory Deficits, Normal Mood/Affect Skin: Rash (Pustular lesions across the back, chest, less on the arms and legs, no hands or feet involvement, no mucosal involvement or any involvement really on his face) Progress/Results/Core Measures Suspected Sepsis SIRS Temperature: Pulse: Respiratory Rate: Blood Pressure / Mean: Results/Orders Vital Signs/I&O Capillary Refill : Progress Note : Progress Note 47-year-old male presenting for what appears like a pustular folliculitis over areas that he shaved. ABCs were intact and vitals were stable on presentation. He has no red flags for this rash, Nikolsky negative, well-appearing. We will give him an antibiotic here followed by prescription. Will recommend not shaving for a while and then using a clean razor every time. Departure Impression Primary Impression: Folliculitis Disposition: 01 HOME, SELF-CARE Condition: Stable Departure-Patient Inst. Decision time for Depature: 17:20 Referrals: IGLES RODNEY MD (PCP/Family) Primary Care Physician Patient Instructions: Bacterial Folliculitis (DC) Add. Discharge Instructions: This looks like a folliculitis which is due to a bacteria on the hair follicles. Most often this is irritated and worsened by shaving. We recommend not shaving until this is improving. After that, only use a clean razor that is new every time. An antibiotic was sent to your pharmacy. If you are not seeing improvement in the next week, follow-up with your regular doctor or [employer]. Scripts Sulfamethoxazole/Trimethoprim (Bactrim Ds Tablet) 1 Each Tablet 1 EACH PO BID for 10 Days, #20 TAB Prov: EDUARD BARRETO MD 12/21/22 Work/School Note: Work Release Form Date Seen in the Emergency Department: Dec 21, 2022 Return to Work: Dec 22, 2022 Restrictions: No Restrictions EDUARD BARRETO MD Dec 21, 2022 17:16
[2022-12-21] MEDS ORDERED: Sulfamethoxazole/Trimethoprim DS TABLET PO ONE (17:30)
== END 2022-12-21 17:25 | disposition home or self-care (01) ==
LOC: EDUNIT# 16:57 → ER 16:59
DX: L73.9 Follicular disorder, unspecified (principal); Z86.16 Personal history of COVID-19
CPT/HCPCS: 99283